=== PATIENT | female | born 1975 | race Caucasian/White ===

== ENCOUNTER 2016-10-01 21:08 | Observation (INO) | payer MEDICAID, OTHER ==
[~2016-10-01] VITALS: Ht 162.6 cm; Wt 83.0 kg
[~2016-10-01 21:08] MED LIST: DICL50TA3 PO
[2016-10-01 21:23] VITALS: BP 119/91; PULSE 93; RESP 18; TEMP 98; O2SAT 96
[2016-10-01 21:36] VITALS: BP 105/68
[2016-10-01] MEDS ORDERED: ONDANSETRON HCL 4 MG/2 ML VIAL IV PUSH ONE (21:45)
[2016-10-01] MEDS ORDERED: ASPIRIN 81 MG CHEW TAB PO ONE (21:45)
[2016-10-01] MEDS ORDERED: SODIUM CHLORID 0.9% 500 ML INJ 500 ML IV ONE (21:45)
[2016-10-01] MEDS ORDERED: SODIUM CHLORIDE 0.9% FLUSH 5 ML FLUSH IVF PRN ×2 (21:45→23:00)
[2016-10-01] MEDS ORDERED: PENI500T PO (21:46)
--- NOTE | 2016-10-01 21:46 | PD ---
HPI Chief Complaint: chest pain & tooth pain Time Seen by Provider: 21:36 Travel History International Travel<30 days: No Contact w/Intl Traveler<30days: No History of Present Illness HPI Patient is a 41-year-old female who presents to emergency room with multiple complaints. Patient reports that she is a smoker, reports that she smokes about half a pack of cigarettes per day. She reports that since yesterday, she has been having increased chest pain. Patient reports that chest pain is located to her substernum, reports that pain feels like pressure to her chest. Patient reports that she has been feeling lightheaded and dizzy with her symptoms. Reports that she has never had chest pain in the past, denies history of coronary disease, hypertension or hyperlipidemia. Patient reports that nothing makes her chest pain better or worse, chest pain has been constant since yesterday. Patient also reports that she has a chipped tooth to her right upper molars, reports that she noticed just chipped tooth yesterday and request pain medications. Reports that she did try taking motrin with no relief of symptoms PFSH Past Medical History Bipolar Disorder: Yes Anxiety: Yes Depression: Yes Diminished Hearing: No Psychiatric: Yes Respiratory: Yes (BRONCHITIS) Immunizations Current: Yes Menopausal: Yes : 3 Para: 2 Miscarriage: 1 Past Surgical History Abdominal Surgery: Yes (LAPAROSCOPY) Section: Yes (X1) Gynecologic Surgery: Yes (RECTAL/VAGINAL FISTULA) Hysterectomy: Yes Other Surgery: Yes (RECTO-VAGINAL FISTULA REPAIR) Family History Family History: Negative Social History Alcohol Use: Yes (SOCIALY) Tobacco Use: Yes (3/4) Substance Use: No Allergies-Medications (Allergen,Severity, Reaction): Coded Allergies: Bactrim (Verified Allergy, Intermediate, RASH, 10/01/16) Latex (Verified Allergy, Mild, RASH, 10/01/16) Reported Meds & Prescriptions Reported Meds & Active Scripts Active Penicillin V Potassium 500 Mg Tab 500 Mg PO Q6H [address] (Diclofenac Sodium) 50 Mg Tab 50 Mg PO BID Review of Systems General / Constitutional: No: Fever Eyes: No: Visual changes HENT: Positive: Other (tooth pain), No: Headaches Cardiovascular: Positive: Chest Pain or Discomfort, Diaphoresis, No: Tachycardia Respiratory: Positive: Shortness of Breath Gastrointestinal: No: Abdominal Pain Genitourinary: No: Dysuria Musculoskeletal: No: Pain Skin: No Rash Neurologic: No: Weakness Psychiatric: No: Depression Endocrine: No: Polydipsia Hematologic/Lymphatic: No: Easy Bruising Physical Exam Narrative GENERAL: NAD, Nontoxic SKIN: Warm and dry. HEAD: Atraumatic. Normocephalic. EYES: Pupils equal and round. No scleral icterus. No injection or drainage. ENT: No nasal bleeding or discharge. Mucous membranes pink and moist. Patient with tooth fracture to right upper molar, no swelling NECK: Trachea midline. No JVD. CARDIOVASCULAR: Regular rate and rhythm. No murmur appreciated. RESPIRATORY: No accessory muscle use. Clear to auscultation. Breath sounds equal bilaterally. GASTROINTESTINAL: Abdomen soft, non-tender, nondistended. Hepatic and splenic margins not palpable. MUSCULOSKELETAL: No obvious deformities. No clubbing. No cyanosis. No edema. NEUROLOGICAL: Awake and alert. No obvious cranial nerve deficits. Motor grossly within normal limits. Normal speech. PSYCHIATRIC: Appropriate mood and affect; insight and judgment normal. Data Data Last Documented VS Vital Signs Date Time Temp Pulse Resp B/P Pulse Ox O2 Delivery O2 Flow Rate FiO2 10/01/16 22:21 80 16 84/45 10/01/16 22:03 Room Air 10/01/16 21:23 98.0 96 Orders Electrocardiogram (10/01/16 21:33) Ckmb (Isoenzyme) Profile (10/01/16 21:33) Complete Blood Count With Diff (10/01/16 21:33) Comprehensive Metabolic Panel (10/01/16 21:33) Prothrombin Time / Inr (Pt) (10/01/16 21:33) Act Partial Throm Time (Ptt) (10/01/16 21:33) Troponin I (10/01/16 21:33) Lipase (10/01/16 21:33) Chest, Single Ap (10/01/16 21:33) Ecg Monitoring (10/01/16 21:33) Iv Access Insert/Monitor (10/01/16 21:33) Oximetry (10/01/16 21:33) Aspirin Chew (Aspirin Chew) (10/01/16 21:45) Sodium Chloride 0.9% Flush (Ns Flush) (10/01/16 21:45) Nitroglycerin Sl (Nitrostat Sl) (10/01/16 21:45) Sodium Chlorid 0.9% 500 Ml Inj (Ns 500 M (10/01/16 21:45) Drug Screen, Random Urine (10/01/16 21:33) Alcohol (Ethanol) (10/01/16 21:33) Ed Urine Pregnancytest Poc (10/01/16 21:33) Ondansetron Inj (Zofran Inj) (10/01/16 21:45) CKMB (10/01/16 21:53) CKMB% (10/01/16 21:53) Ketorolac Inj (Toradol Inj) (10/01/16 22:45) Penicillin V Potassium (Veetids) (10/01/16 22:45) Labs Laboratory Tests Test 10/01/16 10/01/16 21:40 21:53 Urine Opiates Screen NEG Urine Barbiturates Screen NEG Urine Amphetamines Screen NEG Urine Benzodiazepines Screen POS Urine Cocaine Screen NEG Urine Cannabinoids Screen NEG White Blood Count 10.9 TH/MM3 Red Blood Count 4.81 MIL/MM3 Hemoglobin 13.4 GM/DL Hematocrit 40.9 % Mean Corpuscular Volume 85.0 FL Mean Corpuscular Hemoglobin 28.0 PG Mean Corpuscular Hemoglobin 32.9 % Concent Red Cell Distribution Width 13.3 % Platelet Count 290 TH/MM3 Mean Platelet Volume 8.8 FL Neutrophils (%) (Auto) 43.8 % Lymphocytes (%) (Auto) 44.7 % Monocytes (%) (Auto) 8.8 % Eosinophils (%) (Auto) 1.9 % Basophils (%) (Auto) 0.8 % Neutrophils # (Auto) 4.8 TH/MM3 Lymphocytes # (Auto) 4.8 TH/MM3 Monocytes # (Auto) 1.0 TH/MM3 Eosinophils # (Auto) 0.2 TH/MM3 Basophils # (Auto) 0.1 TH/MM3 CBC Comment DIFF FINAL Differential Comment Prothrombin Time 10.0 SEC Prothromb Time International 0.9 RATIO Ratio Activated Partial 25.0 SEC Thromboplast Time Sodium Level 141 MEQ/L Potassium Level 4.4 MEQ/L Chloride Level 107 MEQ/L Carbon Dioxide Level 26.3 MEQ/L Anion Gap 8 MEQ/L Blood Urea Nitrogen 10 MG/DL Creatinine 0.65 MG/DL Estimat Glomerular Filtration 101 ML/MIN Rate Random Glucose 103 MG/DL Calcium Level 8.6 MG/DL Total Bilirubin 0.3 MG/DL Aspartate Amino Transf 25 U/L (AST/SGOT) Alanine Aminotransferase 28 U/L (ALT/SGPT) Alkaline Phosphatase 116 U/L Total Creatine Kinase 170 U/L Creatine Kinase MB 1.3 NG/ML Troponin I LESS THAN 0.02 NG/ML Total Protein 7.3 GM/DL Albumin 3.6 GM/DL Lipase 163 U/L Ethyl Alcohol Level LESS THAN 3 MG/DL MDM Medical Decision Making Medical Screen Exam Complete: Yes Emergency Medical Condition: Yes Interpretation(s) EKG at 2127: Normal sinus rhythm at 83 bpm, QT/QTc 384/424, no acute ST or T- wave changes Vital Signs Date Time Temp Pulse Resp B/P Pulse Ox O2 Delivery O2 Flow Rate FiO2 10/01/16 21:23 98.0 93 18 119/91 96 Differential Diagnosis ACS, arrhythmia, electrolyte abnormality, pneumothorax, tooth fracture, dental infection Narrative Course Patient is a 41-year-old female who presents to emergency room with multiple complaints. Patient reports that she has been having a pressure to her chest since yesterday with associated diaphoresis and shortness of breath. Patient reports that chest pain has been constant, reports that nothing makes pain better or worse. Patient With no history of chest pain in the past, patient with no history of CO or coronary artery disease. Patient with no family history of early CO or heart disease. EKG obtained, patient with no acute ST or T-wave changes, patient was placed on a telemetry monitor, labs as well as cardiac enzymes and x-ray of chest ordered. Nitroglycerin ordered to see if this helps with her chest pain Patient also complaining of right upper tooth pain secondary to fracture. Patient appears to have a dental fracture, there are no apparent signs of infection. Patient understands need to follow-up with a dentist for this tooth pain. Will start patient on antibiotics for possible infection CBC & BMP Diagram 10/01/16 21:53 Last Impressions Chest X-Ray 10/01/162132 Signed Impressions: Service Date/Time: Saturday, October 01, 2016 21:46 - CONCLUSION: No acute disease. Last Donald MD Case reviewed with Dr. Eden who accepts patient to service Diagnosis Primary Impression: Chest pain Qualified Code: R07.9 - Chest pain, unspecified type Additional Impressions: Tooth fracture Qualified Code: S02.5XXA - Closed fracture of tooth, initial encounter Pain in tooth Admitting Information Admitting Physician Requests: Observation Additional Instructions: Please follow-up with your dentist as soon as possible Scripts Penicillin V Potassium 500 Mg [id number] Mg PO Q6H 10 Days Ref 0 Prov:Snow Byrne DO 10/01/16 Snow Byrne DO Oct 01, 2016 21:46
--- NOTE | 2016-10-01 21:54 | RADHPO ---
EXAM DATE/TIME: 10/01/2016 21:46 [facility] COMPARISON: CHEST SINGLE AP, February 22, 2016, 20:35. INDICATIONS : Chest pain for 2 days MEDICAL HISTORY : None. SURGICAL HISTORY : None. ENCOUNTER: Initial ACUITY: 2 days PAIN SCORE: 6/10 LOCATION: Bilateral chest FINDINGS: A single view of the chest demonstrates the lungs to be symmetrically aerated without evidence of mas s, infiltrate or effusion. The cardiomediastinal contours are unremarkable. Osseous structures are intact. CONCLUSION: No acute disease. Last Donald MD on October 01, 2016 at 21:52 Board Certified Radiologist. This report was verified electronically.
[2016-10-01] MEDS: NITROGLYCERIN 0.4 MG SL 25 TABS/BTL SL SCH ×3 (21:59→22:22)
[2016-10-01 22:03] VITALS: BP 104/65; PULSE 76
[2016-10-01 22:05] LABS: AUTOMATED NEUTROPHIL # 4.8 TH/MM3 (1.8-7.7); BASOPHIL # 0.1 TH/MM3 (0-0.2); BASOPHIL % 0.8 % (0.0-2.0); EOSINOPHIL # 0.2 TH/MM3 (0-0.4); EOSINOPHIL % 1.9 % (0.0-4.0); HEMATOCRIT 40.9 % (35.0-46.0); LYMPH % 44.7 % (9.0-44.0); LYMPHOCYTE # 4.8 TH/MM3 (1.0-4.8); MEAN CORPUSCULAR HGB CONC 32.9 % (32.0-36.0); MONO % 8.8 % (0.0-8.0); NEUT % 43.8 % (16.0-70.0); PLATELET COUNT 290 TH/MM3 (150-450); RED BLOOD COUNT 4.81 MIL/MM3 (4.00-5.30); RED CELL DISTRIBUTION WIDTH 13.3 % (11.6-17.2); WHITE BLOOD COUNT 10.9 TH/MM3 (4.0-11.0)
[2016-10-01 22:07] LABS: HEMO FLAGS DIFF FINAL
[2016-10-01 22:08] LABS: AMPHETAMINE, URINE NEG (NEG); BARBITURATES, URINE NEG (NEG); COCAINE, URINE NEG (NEG)
[2016-10-01 22:17] LABS: CHLORIDE 107 MEQ/L (98-107); SODIUM (NA) 141 MEQ/L (136-145)
[2016-10-01 22:21] VITALS: BP 84/45; PULSE 80; RESP 16
[2016-10-01 22:21] LABS: ANION GAP 8 MEQ/L (5-15); BICARBONATE 26.3 MEQ/L (21.0-32.0); BLOOD UREA NITROGEN 10 MG/DL (7-18)
[2016-10-01 22:23] LABS: INTERNATIONAL NORMALIZED RATIO 0.9 RATIO
[2016-10-01 22:24] LABS: ALT (GPT) 28 U/L (10-53); AST (GOT) 25 U/L (15-37); GLOMERULAR FILTRATION RATE 101 ML/MIN (>89)
[2016-10-01 22:25] LABS: TOTAL BILIRUBIN ADULT 0.3 MG/DL (0.2-1.0)
[2016-10-01 22:26] LABS: CREATINE KINASE 170 U/L (26-192)
[2016-10-01 22:27] LABS: ALKALINE PHOSPHATASE 116 U/L (45-117)
[2016-10-01 22:33] LABS: POTASSIUM 4.4 MEQ/L (3.5-5.1)
[2016-10-01] MEDS ORDERED: PENICILLIN V POTASSIUM 500 MG TAB PO ONE (22:45)
[2016-10-01] MEDS ORDERED: KETOROLAC TROMETHAMINE 30 MG/ML (IVP) VIAL IV PUSH ONE (22:45)
[2016-10-01 22:47] LABS: CKMB 1.3 NG/ML (0.5-3.6)
[2016-10-01 23:00] VITALS: BP 99/62; PULSE 78; RESP 18; O2SAT 99
[2016-10-02] VITALS: BP 113/85; PULSE 76; RESP 20; TEMP 96.5; O2SAT 96
[2016-10-02 00:35] VITALS: PULSE 75
[2016-10-02] MEDS: ACETAMINOPHEN/HYDROcodone 325 MG/5 MG TAB PO PRN ×2 (01:28→13:15)
[2016-10-02 02:07] LABS: CREATINE KINASE 134 U/L (26-192)
[2016-10-02 02:20] LABS: CKMB 1.6 NG/ML (0.5-3.6)
[2016-10-02 04:00] VITALS: BP 118/84; PULSE 77; RESP 20; TEMP 96.9; O2SAT 98
[2016-10-02 05:48] LABS: CREATINE KINASE 131 U/L (26-192)
[2016-10-02 06:01] LABS: CKMB 1.9 NG/ML (0.5-3.6)
[2016-10-02 07:15] VITALS: PULSE 61
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
[2016-10-02] MEDS ORDERED: PENICILLIN V POTASSIUM 500 MG TAB PO SCH (07:30)
[2016-10-02 08:00] VITALS: BP 116/89; PULSE 76; RESP 18; TEMP 97.2; O2SAT 96; O2SAT 98
[2016-10-02] MEDS ORDERED: ONDANSETRON HCL 4 MG/2 ML VIAL IV PUSH PRN (08:30)
[2016-10-02] MEDS ORDERED: SODIUM CHLORIDE 0.9% FLUSH 5 ML FLUSH IVF SCH (09:00)
[2016-10-02] MEDS ORDERED: REGADENOSON INJ 0.4 MG/5 ML SYR IV ONE (10:08)
--- NOTE | 2016-10-02 11:56 | RADHPO ---
EXAM DATE/TIME: 10/02/2016 10:36 [facility] COMPARISON: No previous studies available for comparison. INDICATIONS : Substernal chest pain with dizziness for 2 days. Angina. DOSE: 27 mCi Tc99m Myoview at stress. 8.7 mCi Tc99m Myoview at rest. 0.4 mg Lexiscan STRESS SYMPTOMS: Nausea, back pain and headache. EJECTION FRACTION: 56% MEDICAL HISTORY : Gastroesophageal reflux disease. Smoker. SURGICAL HISTORY : Hysterectomy. section. ENCOUNTER: Initial ACUITY: 2 days PAIN SCALE: 6/10 LOCATION: Substernal chest TECHNIQUE: The patient underwent pharmacologic stress with infusion of prescribed dose. Continuous ECG tracing was monitored during stress. Gated SPECT imaging was performed after stress and conventional SPECT i maging was performed at rest. The examination was performed on a SPECT/CT scanner, both attenuation and non-corrected datasets were reviewed. FINDINGS: DISTRIBUTION: The maximum perfused segment at stress is in the lateral wall. Moderate gut activity does obscure the inferior wall. PERFUSION STUDY: The pattern of perfusion at stress is within normal limits. GATED STUDY: There is intact wall motion and thickening without hypokinetic or dyskinetic segments. CONCLUSION: Negative for stress-induced ischemia. Moderate gut activity does obscure the inferior wall. Correlation is suggested. RISK CATEGORY: Low (<1% Annual Mortality Rate) Fausto Mendoza MD FACR on October 02, 2016 at 11:43 Board Certified Radiologist. This report was verified electronically.
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
--- NOTE | 2016-10-02 21:09 | TR ---
Date Performed: 10/02/2016 Time Performed: 10:41:55 DOCTOR: Mary Lou Padilla DRUG LIST: CLINICAL HISTORY: REASON FOR TEST: Chest pain REASON FOR ENDING: OBSERVATION: CONCLUSION: Lexiscan stress test was performed under standard four minute protocol. Radionuclid e was injected one minute prior to ending the test. No electrocardiographic abormalities were present to suggest ischemia. Nuclear imaging and interpretation are pending. COMMENTS:
--- NOTE | 2016-10-02 21:12 | EKG ---
Date Performed: 10/02/2016 Time Performed: 04:31:40 PTAGE: 41 years EKG: Sinus rhythm . rSr'(V1) - probable normal variant Anterior T wave changes are nonspecific Borderline ECG Since PREVIOUS TRACING , no significant change noted PREVIOUS TRACIN10/02/2016 02.12 DOCTOR: Mary Lou Padilla Interpretating Date/Time 10/02/2016 21:11:38
--- NOTE | 2016-10-02 21:13 | EKG ---
Date Performed: 10/02/2016 Time Performed: 02:12:20 PTAGE: 41 years EKG: Sinus rhythm . rSr'(V1) - probable normal variant Anterior T wave changes are nonspecific Borderline ECG Since pre vious tracing, no significant change noted NO PREVIOUS TRACING DOCTOR: Mary Lou Padilla Interpretating Date/Time 10/02/2016 21:12:06
--- NOTE | 2016-10-02 21:14 | EKG ---
Date Performed: 10/01/2016 Time Performed: 21:28:00 PTAGE: 41 years EKG: Sinus rhythm . rSr'(V1) - probable normal variant Anterior T wave changes are nonspecific Borderline ECG Since PREVIOUS TRACING , no significant change noted PREVIOUS TRACIN02/22/2016 19.55 DOCTOR: Mary Lou Padilla Interpretating Date/Time 10/02/2016 21:13:42
[2016-10-03] MEDS ORDERED: INFLUENZA VIRUS VACCINE (QUADRIVALENT) 0.5 ML SYR IM ONE (10:00)
== END 2016-10-02 13:38 | disposition home or self-care (01) ==
LOC: PHED 21:08 → PHEDA 22:51 → PH3A 10-02
PROVIDERS: ADMIT Hospitalist; ATTEND Hospitalist
DX: R07.89 Other chest pain (principal); S02.5XXA Fracture of tooth (traumatic), initial encounter for closed fracture; F31.9 Bipolar disorder, unspecified; F41.9 Anxiety disorder, unspecified; F32.9 Major depressive disorder, single episode, unspecified; K21.9 Gastro-esophageal reflux disease without esophagitis; F17.210 Nicotine dependence, cigarettes, uncomplicated; X58.XXXA Exposure to other specified factors, initial encounter
CPT/HCPCS: 71010; 78452; 80053; 80307; 82550; 82552; 83690; 84484; 84703; 85025; 85610; 85730; 93005; 93017; 96361; 96374; 99285; A9502; G0378; J1885; J2405; J2785; J7040

== ENCOUNTER 2016-10-23 00:20 | Emergency (ER) | payer MEDICAID ==
[~2016-10-23] VITALS: Ht 162.6 cm; Wt 78.4 kg
[~2016-10-23 00:20] MED LIST changes: +PENI500T PO
[2016-10-23 00:40] VITALS: BP 119/77; PULSE 81; RESP 20; TEMP 97.9; O2SAT 97
== END 2016-10-23 00:47 | disposition left against medical advice (07) ==
LOC: PHED 00:20
DX: M54.2 Cervicalgia (principal); M25.519 Pain in unspecified shoulder; M54.9 Dorsalgia, unspecified; Z53.21 Procedure and treatment not carried out due to patient leaving prior to being seen by health care provider
CPT/HCPCS: 99281